=== PATIENT | male | born 1980 ===

== ENCOUNTER 2017-02-16 07:00 | Inpatient (IN) | payer OTHER ==
[~2017-02-16] VITALS: Ht 188 cm; Wt 83.9 kg
[2017-04-04] VITALS (13 sets, daily range): BP systolic 104–127; BP diastolic 60–79
[2017-04-04] MEDS ORDERED: LR 1000ml 1,000 ML IVLG SCH (06:25)
[2017-04-04] MEDS ORDERED: Metoclopramide 10mg/2ml Inj IVP PRN ×3 (06:30→08:00)
[2017-04-04] MEDS ORDERED: Acetaminophen (Non formulary) 100 ML IV ONE (06:30)
[2017-04-04] MEDS ORDERED: Ketorolac 30mg Inj IV PRN (06:30)
[2017-04-04] MEDS ORDERED: Hydromorphone 0.5mg/0.5ml inj IVP PRN (06:30)
[2017-04-04] MEDS ORDERED: LORazepam Inj 2mg/ml 1ml IV PRN (06:30)
[2017-04-04] MEDS ORDERED: fentaNYL 100 mcg/2 mL IV PRN (06:30)
[2017-04-04] MEDS ORDERED: Norco 7.5mg/325mg tab ORAL PRN ×3 (06:30→07:15)
[2017-04-04] MEDS ORDERED: Atropine Inj 1mg/10ml Syr IV PRN (06:30)
[2017-04-04] MEDS ORDERED: Ketorolac 60mg Inj IV PRN (06:30)
[2017-04-04] MEDS ORDERED: Norco 5mg/325mg tab ORAL PRN ×2 (06:30→07:15)
[2017-04-04] MEDS ORDERED: DiphenhydrAMINE 50mg/ml Inj IVP PRN (06:30)
[2017-04-04] MEDS ORDERED: Midazolam 2mg/2ml Inj IVP PRN (06:30)
[2017-04-04] MEDS ORDERED: oxyCODONE HCL/Acetaminophen 5/325mg ORAL PRN (06:30)
[2017-04-04] MEDS ORDERED: NKM (06:33)
[2017-04-04] MEDS ORDERED: Thrombin 5000 units TOPIC ONE ×2 (06:40→06:42)
[2017-04-04] MEDS ORDERED: Surgicel 4in x 8in TOPIC ONE (06:40)
[2017-04-04] MEDS ORDERED: Vancomycin 1gm inj IVPB ONE (06:41)
[2017-04-04] MEDS ORDERED: Bacitracin 50000 Units Vial ONE (06:41)
[2017-04-04] MEDS ORDERED: Heparin 5000 units/ml inj ONE (06:41)
[2017-04-04] MEDS ORDERED: Bupivacaine 0.5% Inj 30 ml vial INJ ONE (06:41)
--- NOTE | 2017-04-04 06:44 | Anethesia Preoperative Eval ---
Anesthesia Pre-op PMH/ROS General Date of Evaluation: Apr 04, 2017 Time of Evaluation: 06:57 Anesthesiologist: Saurabh ASA Score: ASA 2 Mallampati Score Class I : Soft palate, uvula, fauces, pillars visible Class II: Soft palate, uvula, fauces visible Class III: Soft palate, base of uvula visible Class IV: Only hard plate visible Mallampati Classification: Class I Surgeon: Alma Diagnosis: Back Pain Surgical Procedure: ALIF L5-S1, PSF L5-S1, L4-5 Microdiscectomy Anesthesia History: none Family History: no anesthesia problems Allergies: Coded Allergies: SULFA (SULFONAMIDE ANTIBIOTICS) (Verified Allergy, Severe, Anaphylaxis, ) Medications: see eMAR Past Medical History Gastrointestinal/Genitourinary: Reports: other - Testicular CA PSxH Narrative: Microdiscectomy, Orchiectomy Anesthesia Pre-op Phys. Exam Physician Exam Last Vital Signs Date Time Temp Pulse Resp B/P (MAP) Pulse Ox O2 Delivery O2 Flow Rate FiO2 04/04/17 06:35 97.8 67 18 125/74 100 Room Air Constitutional: NAD Neurologic: CN 2-12 intact Cardiovascular: RRR Respiratory: CTA Gastrointestinal: S/NT/ND Airway Exam Mallampati Score: Class I MO: full ROM: full Teeth: intact Anesthesia Pre-op A/P Risk Assessment & Plan Assessment: ASA 2 Plan: GA, BIS, GlideScope Status Change Before Surgery: No Pre-Antibiotics Dru Grams Ancef IV Given Within 1 Hr of Incision: Yes Time Given: 07:16 Prasad Wiley MD Apr 04, 2017 06:44
[2017-04-04] MEDS ORDERED: Sterile Water Irrig 1000ml IRRIG ONE (07:00)
[2017-04-04] MEDS ORDERED: Glycopyrrolate 0.2mg/ml 1ml Vial ONE (07:00)
[2017-04-04] MEDS ORDERED: ceFAZolin 2gm/D5W 50ml Premix IV ONE (07:00)
[2017-04-04] MEDS ORDERED: Dexamethasone 4mg/ml vial ONE (07:00)
[2017-04-04] MEDS ORDERED: NS Irrig 1000ml ONE (07:00)
[2017-04-04] MEDS ORDERED: Labetalol 5mg/ml 20ml vial IV ONE (07:00)
[2017-04-04] MEDS ORDERED: fentaNYL 100 mcg/2 mL IV ONE (07:00)
[2017-04-04] MEDS ORDERED: ceFAZolin sod 2 GM in D5W 110 ML IVPB ONE (07:00)
[2017-04-04] MEDS ORDERED: Propofol 1,000mg/ 100ml btl IV ONE (07:00)
[2017-04-04] MEDS ORDERED: Zemuron 50mg/5ml Inj IV ONE (07:00)
[2017-04-04] MEDS ORDERED: Lidocaine 1% MPF 10mg/ml 5ml ONE (07:00)
[2017-04-04] MEDS ORDERED: Neostigmine 1mg/ml 10ml Inj ONE (07:00)
[2017-04-04] MEDS ORDERED: LR 1000ml ONE (07:00)
--- NOTE | 2017-04-04 07:08 | Pre-Procedure Note/Attestation ---
Pre-Procedure Note/Attestation Complete Prior to Procedure Planned Procedure: not applicable Procedure Narrative: Stage 1 Anterior Lumbar interbody fusion of L5S1 with bone morphogenic protein and allograft Stage 2 posterior L45 microdiscectomy, L5S1 lange nunez/lockhart laminectomy and pedicle screw fixation Indications for Procedure Pre-Operative Diagnosis: herniation L45,5S1 Attestation I attest that I discussed the nature of the procedure; its benefits; risks and complications; and alternatives (and the risks and benefits of such alternatives ), prior to the procedure, with the patient (or the patient's legal pharmaceutical representative). I attest that, if there was a reasonable possibility of needing a blood transfusion, the patient (or the patient's legal pharmaceutical representative) was given the [place] [employer] [facility] [employer] [facility] standardized written summary, pursuant to the Rubén Brittni Blood Safety Act ([place] Health and Safety Code # 1645, as amended). I attest that I re-evaluated the patient just prior to the surgery and that there has been no change in the patient's H&P, except as documented below: MIGUELITO RODRIGUEZ Apr 04, 2017 07:08
--- NOTE | 2017-04-04 07:09 | Brief Operative Note ---
Immediate Post Operative Note Operative Note Chief Complaint: back pain and radiculopathy Pre-op Diagnosis: herniation L45,5S1 Procedure: Stage 1 Anterior Lumbar interbody fusion of L5S1 with bone morphogenic protein and allograft Stage 2 posterior L45 microdiscectomy, L5S1 lange nunez/lockhart laminectomy and pedicle screw fixation Post-op Diagnosis: same as pre-op Findings: consistent w/pre-op dx studies Surgeon: Alma Linen Worker: Elizabeth Anesthesia: general Specimen: none Complications: none Condition: stable Estimated Blood Loss: minimal Implant(s) used?: Yes - Nuvasive interlock sz 14, synthes screws x4 MIGUELITO RODRIGUEZ Apr 04, 2017 07:09
[2017-04-04] MEDS ORDERED: HYDROmorphone 1mg/ml Carpuject IVP PRN (07:15)
[2017-04-04] MEDS ORDERED: Chloraseptic Spray 20mL Bottle ORAL PRN (07:15)
[2017-04-04] MEDS ORDERED: Milk of Magnesia 30ml Ud ORAL PRN (07:15)
[2017-04-04] MEDS ORDERED: Naloxone 0.4mg/ml Inj IVP PRN (07:15)
[2017-04-04] MEDS ORDERED: HYDROmorphone 1mg/ml Carpuject SUBQ PRN (07:15)
--- NOTE | 2017-04-04 07:45 | Immediate Post-Op Evaluation ---
Immediate Post-Op Evalulation Immediate Post-Op Evalulation Procedure: ALIF L5-S1, PSF L5-S1, L4-5 Microdiscectomy Date of Evaluation: Apr 04, 2017 Time of Evaluation: 11:45 IV Fluids: 1000 LR Blood Products: 0 Estimated Blood Loss: 50 Urinary Output: 200 Blood Pressure Systolic: 127 Blood Pressure Diastolic: 79 Pulse Rate: 88 Respiratory Rate: 18 O2 Sat by Pulse Oximetry: 100 Temperature (Fahrenheit): 98 Pain Score (1-10): 3 Nausea: No Vomiting: No Complications 0 Patient Status: awake, reacts, patent, extubated, none Hydration Status: adequate Dru Grams Ancef IV Given Within 1 Hr of Incision: Yes Time Given: 07:16 Prasad Wiley MD Apr 04, 2017 07:45
[2017-04-04] MEDS: Docusate 100mg cap ORAL SCH ×2 (09:00→18:06)
[2017-04-04] MEDS: Dexamethasone 4mg/ml vial IVP SCH ×4 (12:00→23:29)
[2017-04-04] MEDS: ceFAZolin sod 1 GM in D5W 55 ML IV SCH ×2 (14:59→23:28)
[2017-04-04] MEDS: NS w/KCl 20mEq 1,000 ML IV SCH ×2 (14:59→23:29)
--- NOTE | 2017-04-04 17:30 | Consultation ---
DATE OF CONSULTATION: 04/04/2017 VASCULAR SURGERY CONSULTATION CONSULTING PHYSICIAN: Gil Johnson M.D. HISTORY OF PRESENT ILLNESS: The patient is a 36-year-old male, who was admitted to undergo anterior lumbar interbody fusion of L5-S1 as determined by his spine surgeon, Dr. Ronny Marquez. Prior to today, the patient had received at his home my separate informed consent form, which introduced me and explained my role in the approach for the anterior lumbar spine surgery. It also outlined the possible risks and complications including but not limited to hemorrhage, need for blood transfusions, retrograde ejaculation, wound infection, bowel or ureter injury, arterial or venous injury or thrombosis, and the remote chance of , etc. The patient read the form, signed it, and sent it back to my office. In addition, I telephoned the patient where the procedure was discussed. Today, he was seen in the preoperative holding area where the contents of the form were again reviewed and any further questions were answered. He was shown the site of the incision. He had palpable bilateral dorsalis pedis pulses. He was 6 feet 2 inches tall, weighing approximately 185 pounds giving him BMI of 24. He had hematocrit of 42 with platelet count of 218,000. His INR was 1.08 with PTT of 31 seconds. That consent was signed once again with a nurse witness and signature as well and then placed into the chart. He fully understood and wished to proceed. There were no contraindications and we would proceed with the proposed operation. Gil Johnson M.D. : AMBER JOB#: [id number] CC:
[2017-04-05 00:39] VITALS: BP 105/63
--- NOTE | 2017-04-05 04:00 | Operative Note - Dictated ---
DATE OF OPERATION: 04/04/2017 OPERATIONS: 1. Muscle-sparing anterior abdominal retroperitoneal approach for anterior lumbar interbody fusion. 2. Plastic closure repair of abdominal wound. CO-SURGEONS: 1. Ruben Johnson M.D. 2. Ronny Marquez M.D. ANESTHESIA: General. ANESTHESIOLOGIST: Prasad Wiley M.D. PREOPERATIVE DIAGNOSIS: Herniated nucleus pulposus with radiculopathy, L5-S1. POSTOPERATIVE DIAGNOSIS: Herniated nucleus pulposus with radiculopathy, L5-S1. DESCRIPTION OF PROCEDURE: Prior to surgery, the patient had received at his home my separate informed consent form, which introduced me and explained my role in the approach for the anterior lumbar spine surgery. It also outlined the possible risks and complications including but not limited to hemorrhage, need for blood transfusions, retrograde ejaculation, wound infection, bowel or ureter injury, arterial or venous injury or thrombosis, and remote chance of , etc. The patient read the form, signed it, and sent it back to my office. In addition, I telephoned the patient where the procedure was discussed. Today, he was seen in the preoperative holding area with the content of the form were again reviewed and any further questions were answered. He was shown the site of the incision. He had palpable bilateral dorsalis pedis pulses. That consent was signed once again with a nurse witness and signature as well and then placed into the chart. He fully understood and wished to proceed. A preoperative vascular surgery consultation report was dictated. The patient was taken into the operating room and placed in supine position. Using an endotracheal tube, he was placed under general anesthesia without difficulty. His abdomen was prepped and draped in the usual sterile manner. An appropriate time-out was obtained. A transverse incision was made in the left lower quadrant from the midline and carried down through the subcutaneous tissues down to the rectus fascia. Hemostasis was achieved using the electrocautery. The rectus fascia was incised transversely and elevated off the anterior surface of the muscle for a distance of approximately 4 cm, both caudad and cephalad. This would allow for retraction of the rectus muscle laterally later in the case in order to obtain direct anterior-posterior approach to the anterior surface of the spine. The inferior epigastric vessels were identified and preserved. Laterally, the retroperitoneal space was entered down to the left psoas muscle. The left ureter was identified and protected as it was mobilized with the peritoneum more medially until the left iliac artery was identified. Deep self-retaining retractors such as the Brett and Bookwalter were utilized to hold the abdominal wall and peritoneal contents in place while further dissection was carried out. Careful blunt dissection was carried out below the bifurcation of the iliac vessels with several medial branches of the iliac vein were taken between Hemoclips and transected. The middle sacral artery was taken between Hemoclips and transected. Careful blunt dissection was carried out to preserve the sympathetic chains laterally as well as the parasympathetic plexus, which lies anteriorly along the surface of the fifth lumbar vertebra. Further careful blunt dissection was utilized to expose the anterior surface of the multiple vertebral bodies and intervening disk space. Several malleable retractor blades were now placed in all quadrants with the rectus muscle now retracted laterally, which allowed exposure and direct anterior-posterior approach from the anterior surface of the spine. A needle was inserted into the appropriate disk space and an x-ray was taken to verify the exposure. The spine surgeon then proceeded to perform diskectomy and fusion, which would be dictated in a separate report by the spine surgeon, Dr. Marquez. Antibiotic irrigation had been utilized in the wound. Vancomycin powder was left in the retroperitoneal space. The malleable retractors were removed. The integrity of the iliac vessels were then checked to make sure that there was no tear or thrombosis of the vein and that there was adequate flow through the artery with no evidence of spasm or thrombosis. A further check for hemostasis was made and the integrity of the ureter was verified. The peritoneum was allowed to return to its anatomical location and then the anterior rectus sheath approximated using continuous running suture of #1 Vicryl. Subcutaneous tissues were irrigated using dilute Betadine solution as well as antibiotic solution and hemostasis noted to be achieved. Plastic closure repair of the abdominal wound was continued using 2-0 Vicryl followed by skin approximation using continuous subcuticular suture of 3-0 Monocryl. Steri-Strips were applied. Dry sterile gauze, OpSite dressing was applied. The sponge, pad, needle, and instrument counts were reported as correct. Estimated blood loss was less than 50 mL. There were no complications during this part of the procedure. At completion of this part of the procedure, the patient had maintenance of strong palpable bilateral dorsalis pedis pulses and the pulse oximeter registered 100% on the left foot. The patient will remain in the operating room and undergo posterior instrumentation by the spine surgeon. Gil Johnson M.D. DR: Nazario JOB#: [id number] CC:
--- NOTE | 2017-04-05 04:00 | Operative Note - Dictated ---
DATE OF OPERATION: 04/04/2017 FACILITY: [facility]. STAGE 1 OF 2: SURGEON: Ronny Marquez M.D., Orthopaedic Spine Surgeon. NUCLEAR MEDICINE SPECIALIST SURGEON: Gil Johnson M.D. ANESTHESIA: General endotracheal anesthesia. PREOPERATIVE DIAGNOSES: 1. Intractable back pain. 2. Intractable leg pain. 3. Worsening radiculopathy. 4. Weakness. 5. Herniated nucleus pulposus, L5-S1 herniation. 6. Neural foraminal stenosis, L5-S1 herniation. POSTOPERATIVE DIAGNOSES: 1. Intractable back pain. 2. Intractable leg pain. 3. Worsening radiculopathy. 4. Weakness. 5. Herniated nucleus pulposus, L5-S1 herniation. 6. Neural foraminal stenosis, L5-S1 herniation. PROCEDURES PERFORMED: 1. Radical anterior lumbar intervertebral L5-S1 discectomy. 2. Anterior lumbar interbody fusion using NuVasive Brigade PEEK cage size 14 mm, size medium and bone morphogenetic protein with allograft Bellwood . 3. Anterior lumbar plating and fixation at L5-S1 using #4 screws of 25 mm length. 4. Anterior retroperitoneal exposure. 5. Supervision and interpretation of intraoperative fluoroscopy. 6. Supervision and interpretation of somatosensory-evoked potential and free running EMG monitoring. ESTIMATED BLOOD LOSS: 150 mL. COMPLICATIONS: None. INDICATIONS FOR THE PROCEDURE: The patient is a 36-year-old male who presents for intractable back pain and radiculopathy which is well documented in our clinical chart and records. We had a long discussion with Mike regarding definitive surgical treatment options. We had a long discussion with the patient regarding the risks, alternatives, and benefits of procedure. Our description of the risks included a discussion in person as well as a signed consent which detailed all pertinent risks and the procedure itself. Briefly, our discussion included but was not limited to infection, bleeding, pseudarthrosis, spinal cord injury, neurovascular injury, dural tear, CSF leak, neuropathy, paralysis, permanent weakness/drop foot, paresthesias, blindness, palsy, and weakness. The patient understood there may be a need for revision surgery or additional procedures. Approach-related complications including dysphonia, dysphagia, blindness, permanent vocal cord and neural injury, hematoma, swallowing and breathing difficulty; medical complications including liver, kidney, shock, and cardiopulmonary failure; anesthesia complications including , swelling, damage to the musculature, larynx, esophagus, trachea, blood vessels and muscles and lungs during this surgical procedure. Injury to deeper structures may be temporary or permanent. The patient understood these and elected to proceed. A written and verbal consent was given. We discussed the pros and cons of all the alternatives. We discussed the uncertainties associated with the decision. Afterwards I assessed the patients understanding and explored their preferences. All questions were answered and no guarantees were given. Medical clearance was obtained prior to surgery. OPERATIVE FINDINGS: A broad-based disc herniation at L5-S1 was encountered, which encroached on the thecal sac and neural foraminal elements therein. This L5-S1 disc was acute in nature and not calcified. It was mobile and free floating and resected easily. There was also neural foraminal stenosis at L5-S1. DESCRIPTION OF PROCEDURE: Under the benefit of general endotracheal anesthesia and with the assistance of the entire operative team, the patient was moved from the rney onto the operative table in the supine position on a radiolucent frame. The head was secured and positioned appropriately. Bilateral arms were secured with Gel Pads and foam and all bony prominences were padded. The bilateral lower extremity SCD and JOSE hose were placed for DVT prophylaxis. A surgical timeout was called which corroborated our planned procedure. Preoperative antibiotics were administered within 30 minutes of the incision for prophylaxis. Using lateral radiography, the operative levels were delineated. An incision was marked based on our interpretation of lateral radiography and afterwards the body was prepped and draped in the usual sterile manner. The family was notified that we were ready to commence surgery and were called in the waiting room hourly for updates. An incision was based on our lateral fluoroscopic image to center the incision at the L5-S1 interspace. The wound was prepped and draped in the usual sterile fashion. Using a scalpel, a standard retroperitoneal exposure was performed by our vascular surgeon, Dr. Johnson and this is delineated in a separate operative note. After appropriate exposure at the L5-S1 disc space, we next turned our attention towards our radical discectomy. This was performed in standard fashion first beginning with a gentle mobilization of all superficial soft tissue overlying the disc space with Kittners. After this was performed, we marked our midline and confirmed our disc space on AP and lateral fluoroscopy. Next, using a 10 blade long-handled scalpel, the disc was resected from the endplates in a box discectomy technique. Next using Virgen elevators, the disc was mobilized off each endplate. After this, using a large Leksell rongeurs, the entire disc was removed from the intervertebral space. All residual disc and cartilaginous endplates were resected using a combination of small and medium curettage, pituitaries, size 4 and size 6 Kerrison rongeurs. Next, the endplates were distracted in a parallel fashion using the Kavin polisher and buffer and a 7.5 Thandle. At this point, the PLL was resected using a small curette and a Kerrison 4 rongeur. Next the endplates were resected down to bleeding subchondral bone using a ring and box curette. For any residual bleeding which we encountered at this point, this was maintained and controlled with a combination of FloSeal, Gelfoam, and bipolar cautery. Afterwards, Tisseel was used to seal the discectomy site dorsally. Next I then trialed the interspace for height, width, and depth. This was confirmed on fluoroscopy and once satisfied with our fit, we loaded and inserted a NuVasive Brigade PEEK cage size 14 mm with bone morphogenetic protein and with allograft [place] bone under AP and lateral fluoroscopy. AP and lateral fluoroscopy confirmed excellent placement at the L5-S1 interspace. Afterwards, we turned our attention towards plating from the NuVasive Brigade Interlock system. This anterior lumbar plating and fixation at L5-S1 using #4 screws of 25 mm length. Final radiographs confirmed appropriate placement of all hardware, screws, and our PEEK cage along with a oriental orthodox of the lumbar lordosis. Afterwards, Tisseel was used to seal the discectomy site ventrally. FloSeal and Zosyn antibiotics were placed directly on the anterior fusion site. The wounds were copiously irrigated with antibiotic impregnated saline. Afterwards, FloSeal was placed to address residual bleeding. Powdered antibiotics were directly poured into the wound to provide for direct antibiosis. Next, I turned my attention to closure. Fascial closure was performed with 1-0 Vicryl suture. Subcutaneous tissues were reapproximated with 2-0 Vicryl. The superficial subcutaneous skin was closed with a running Monocryl and Dermabond. Dressings consisted of Tegaderm and 4 x 4 gauze. The patient tolerated the procedure well and after discussion with our vascular surgeon and our anesthesiologist, we made the determination to proceed with stage 2 of 2 our posterior based approach. The details of stage 1 of the surgery were related to the patients family/representatives upon the conclusion of the procedure in the family waiting room. STAGE 2 OF 2: SURGEON: Ronny Marquez M.D., Orthopaedic Spine Surgeon. NUCLEAR MEDICINE SPECIALIST SURGEON: PATRICIA Shelby. ANESTHESIA: General endotracheal anesthesia. PREOPERATIVE DIAGNOSES: 1. Intractable back pain. 2. Intractable leg pain. 3. Worsening radiculopathy. 4. Weakness. 5. Herniated nucleus pulposus, L4-L5 herniation. 6. Neural foraminal stenosis, L4-L5. POSTOPERATIVE DIAGNOSES: 1. Intractable back pain. 2. Intractable leg pain. 3. Worsening radiculopathy. 4. Weakness. 5. Herniated nucleus pulposus, L4-L5, L5S1 herniation. 6. Neural foraminal stenosis, L4-L5. PROCEDURES PERFORMED: 1. Left-sided hemilaminotomy, foraminotomy, medial facetectomy partial, and microdiscectomy at L4-L5. 2. L5S1 posterolateral fusion using allograft bone, local autograft,. 3. Percutaneous pedicle screw fixation at L5S1 using Synthes 2 screws of size 6 mm x 45 mm length. 4. Confirmation of pedicle screws placement using neural monitoring. 5. Use of intraoperative microscope. 6. Supervision and interpretation of intraoperative fluoroscopy. 7. Supervision and interpretation of somatosensory-evoked potential and free running EMG monitoring. ESTIMATED BLOOD LOSS: 150 overall total mL. COMPLICATIONS: None. INDICATIONS FOR THE PROCEDURE: The patient is a 36-year-old male who presents for stage 2 in regard to their intractable back pain and radiculopathy. This operative note details the second stage of our surgery. Prior to surgery, we had a long discussion with Mike regarding definitive surgical treatment options. We had a long discussion with the patient regarding the risks, alternatives, and benefits of procedure. Our description of the risks included a discussion in person as well as a signed consent which detailed all pertinent risks and the procedure itself. Briefly, our discussion included but was not limited to infection, bleeding, pseudarthrosis, spinal cord injury, neurovascular injury, dural tear, CSF leak, neuropathy, paralysis, permanent weakness/drop foot, paresthesias, blindness, palsy, and weakness. The patient understood there may be a need for revision surgery or additional procedures. Approach-related complications including dysphonia, dysphagia, blindness, permanent vocal cord and neural injury, hematoma, swallowing and breathing difficulty; medical complications including liver, kidney, shock, and cardiopulmonary failure; anesthesia complications including , swelling, damage to the musculature, larynx, esophagus, trachea, blood vessels and muscles and lungs during this surgical procedure. Injury to deeper structures may be temporary or permanent. The patient understood these and elected to proceed. A written and verbal consent was given. We discussed the pros and cons of all the alternatives. We discussed the uncertainties associated with the decision. Afterwards I assessed the patients understanding and explored their preferences. All questions were answered and no guarantees were given. This now delineates the second stage of the procedure. OPERATIVE FINDINGS: A significant amount of neural foraminal encroachment along the thecal sac and neural foraminal elements therein. This neural foraminal stenosis at L4-L5 was more than appreciated on the MRI. DESCRIPTION OF PROCEDURE: Under the benefit of general endotracheal anesthesia and with the assistance of the entire operative team, the patient was moved from the radiolucent operative table in the prone position onto a Jt frame. The head was secured and positioned appropriately. Bilateral arms were secured with Gel Pads and foam and all bony prominences were padded. The bilateral lower extremity SCD and JOSE hose were replaced for DVT prophylaxis. A surgical timeout was called which corroborated our planned procedure. Preoperative antibiotics were administered within 30 minutes of the incision for prophylaxis. Using lateral radiography, the operative levels were delineated. An incision was marked based on our interpretation of anterior posterior and lateral radiography and afterwards the body was prepped and draped in the usual sterile manner. The family was notified that we were ready to commence surgery and were called in the waiting room hourly for updates. An incision was based on our anterior, posterior, and lateral fluoroscopic image to center the incision at the L5S1 interspace. The wound was prepped and draped in the usual sterile fashion. Using a scalpel, a midline incision was made and the subcutaneous tissue was mobilized so that within the fascia, one Ania based incisions were made, one incision on the left side focusing on the pedicle at L5 S1 through a percutaneous stab wound approach. All pedicles were cannulated in the exact same fashion for each level. This was performed in the following manner. Using Jamshidi needles under direct AP and lateral fluoroscopic visualization, I approached the L5S1 pedicles with Jamshidi needles making sure to leave clearance along the medial pedicle boundary/wall, and next we advanced our bilateral pedicle screw entry points under AP and lateral fluoroscopy at both our pedicles bilaterally. Next, percutaneous screws were loaded on the left-hand side Screws were inserted in percutaneous fashion and afterwards these screws were stimulated. Next, a steve was lordosed and placed percutaneously through the incision. Next, we turned our attention to our hemilaminotomy, foraminotomy, medial facetectomy partial, and microdiscectomy, and decompression. This was performed at each level in the exact same fashion. Based on AP and lateral fluoroscopy, we centered this incision over the facet joints at L5S1 of the left side. This was taken down through the skin and subcutaneous tissues until the overlying pars facet joints of L5S1 were visualized under microscopic visualization. There was severe pressure on this neural foramina as palpated with the Gooding dental and a Artis ball probe. The pars was then visualized on the contralateral side and this was carefully resected along with the lamina and superior articular process using a Midas Riley AM8 drill bit. This was completely resected using a hemilaminotomy, foraminotomy, medial facetectomy partial, and microdiscectomy. There was a significant amount of bleeding which we encountered at this point and this was maintained and controlled with a combination of FloSeal, Gelfoam, and bipolar cautery. After complete resection of the facet joints, we noticed the lateral thecal sac margin and the neural elements. Next, I turned my attention to the stimulation of pedicle screws. All pedicle screws were stimulated with somatosensory evoked potentials ranging over 20 milliampere with no response. Afterwards percutaneous rods from the Synthes pedicle screw system were inserted and placed percutaneously and locking caps were placed. Final radiographs confirmed appropriate placement of all hardware, screws, and our PEEK cages along with a oriental orthodox of the lumbar lordosis. Next at L45 a partial hemilaminotomy foraminotomy medial facetectomy was performed using a midas riley, rongeurs, pituitaries. The ligamentum flavum was resected on this the left sided. The thecal sac was carefully mobilized exposing the broad based disc herniation at L45, there was a distinct fresh tear of the annular fibers noted with a large protruding herniated fragment. This was resected using a 15blade scalpel narrow pituitashu and the disc was resected in pieces until all offending nucleus pulposus was removed. The wounds were copiously irrigated with antibiotic impregnated saline. Afterwards, FloSeal was placed to address residual bleeding. Powdered antibiotics were directly poured into the wound to provide for direct antibiosis. Next I turned my attention to closure. Fascial closure was performed with 1-0 Vicryl suture. Subcutaneous tissues were reapproximated with 2-0 Vicryl. The superficial subcutaneous skin was closed with a running Monocryl and Dermabond. Dressings consisted of Tegaderm and 4 x 4 gauze. The patient tolerated the procedure well and will now be admitted to the spine floor for further observation. The details of the entire surgery were related to the patients family/representatives upon the conclusion of the procedure in the family waiting room. Ronny Marquez M.D. DR: Caryn JOB#: [id number] CC: MCKAY
[2017-04-05 04:44] VITALS: BP 95/58
[2017-04-05] MEDS: Dexamethasone 4mg/ml vial IVP SCH (06:12)
[2017-04-05] MEDS: ceFAZolin sod 1 GM in D5W 55 ML IV SCH (06:12)
[2017-04-05 08:00] VITALS: BP 119/68
[2017-04-05] MEDS: Docusate 100mg cap ORAL SCH (08:23)
[2017-04-05 09:14] VITALS: BP 113/68
--- NOTE | 2017-04-05 09:14 | 48 Hour Post Anesthesia Eval ---
Post Anesthesia Evaluation Procedure: ALIF L5-S1, PSF L5-S1, L4-5 Microdiscectomy Date of Evaluation: Apr 05, 2017 Time of Evaluation: 09:30 Blood Pressure Systolic: 113 0: 68 Pulse Rate: 55 Respiratory Rate: 18 Temperature (Fahrenheit): 98.4 O2 Sat by Pulse Oximetry: 98 Airway: patent Nausea: No Vomiting: No Hydration Status: adequate Cardiopulmonary Status: Stable Mental Status/LOC: patient returned to baseline - Patient ambulating with a walker. Doing very well. Follow-up Care/Observations: As per surgery Post-Anesthesia Complications: No anesthetic complication Follow-up care needed: N/A NEDRA WILKERSON M.D. Apr 05, 2017 09:14
[2017-04-05] MEDS ORDERED: NORCO 10-325 T1 EACH ORAL (10:02)
--- NOTE | 2017-04-07 11:01 | Diagnostic Imaging Report ---
Indication: PAIN, intraoperative Technique: Intraoperative images Comparison: none Findings: Initial image demonstrates surgical tool projecting over the anterior aspect of what is presumably the L5-S1 disc. Subsequent images document anterior fusion and subsequent posterior fusion Impression: Intraoperative imaging, as described
--- NOTE | 2017-04-07 15:16 | Discharge Summary ---
Discharge Summary Hospital Course Date of Admission Apr 04, 2017 at 05:33 Date of Discharge Apr 05, 2017 at 10:30 Admitting Diagnosis HPI Mike Rangel is a 36 year old male who was admitted on Apr 04, 2017 at 05:33 for Lumbar Herniated Nucleus Pulposi Pain ,Radiculopat Hospital Course [id number] Discharge Discharge Disposition Patient was discharged to Home (01) Discharge Diagnoses: Leslee Perez NP Apr 07, 2017 15:16
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
== END 2017-04-05 10:30 | disposition home or self-care (01) | DRG 455 ==
LOC: SDSOVERFLO 04-04 05:33 → 3E 04-04 13:30
PROC: 0SB20ZZ Excision of Lumbar Vertebral Disc, Open Approach (ICD-10-PCS; principal; 2017-04-04 07:00)
PROC: 0SG3071 Fusion of Lumbosacral Joint with Autologous Tissue Substitute, Posterior Approach, Posterior Column, Open Approach (ICD-10-PCS; principal; 2017-04-04 07:00)
PROC: 0ST40ZZ Resection of Lumbosacral Disc, Open Approach (ICD-10-PCS; principal; 2017-04-04 07:00)
PROC: 0SG30A0 Fusion of Lumbosacral Joint with Interbody Fusion Device, Anterior Approach, Anterior Column, Open Approach (ICD-10-PCS; principal; 2017-04-04 07:00)
PROC: 4A11X4G Monitoring of Peripheral Nervous Electrical Activity, Intraoperative, External Approach (ICD-10-PCS; principal; 2017-04-04 07:00)
DX: M51.17 Intervertebral disc disorders with radiculopathy, lumbosacral region (principal); M48.061 Spinal stenosis, lumbar region without neurogenic claudication; M48.07 Spinal stenosis, lumbosacral region; M51.16 Intervertebral disc disorders with radiculopathy, lumbar region
CPT/HCPCS: 36415; 72020; 76001; 86850; 86900; 86901; 87081; 94003; 94150; J2405; J2710